=== PATIENT | female | born 1995 ===

== ENCOUNTER 2020-07-14 05:31 | Inpatient (IN) ==
[2020-07-14] MEDS ORDERED: LACTATED RINGER'S 1,000 ML IV SCH (05:45)
[2020-07-14] MEDS ORDERED: CITRIC ACID/SODIUM CITRATE 15 ML UDC PO SCH (06:00)
[2020-07-14 06:07] LABS: Basophils # (auto) 0.02 K/uL (0-0.2); Basophils % (auto) 0.2 %; Eosinophils % (auto) 0.9 %; Hematocrit (blood only) 35.9 % (37-47); Hemoglobin 12.9 g/dL (12.0-16.0); Immature Granulocytes # (auto) 0.05 K/uL (0.00-0.02); Immature Granulocytes % (auto) 0.5 %; Lymphocytes # (auto) 1.83 K/uL (1.2-3.4); Lymphocytes % (auto) 17.1 %; Mean Corpuscular Hemoglobin 32.1 pg (25-34); Mean Corpuscular Volume 89.3 fL (80-100); Monocytes # (auto) 1.09 K/uL (0.11-0.59); Monocytes % (auto) 10.2 %; Neutrophils # (auto) 7.61 K/uL (1.4-6.5); Neutrophils % (auto) 71.1 %; Platelet Count 228 K/uL (130-400); RDW Coefficient of Variation 13.3 % (11.5-14.5); RDW Standard Deviation 43.3 fL (36.4-46.3); Red Blood Count 4.02 M/uL (4.2-5.4)
[2020-07-14 06:08] LABS: Mean Corpuscular Hgb Conc 35.9 g/dL (32-36)
--- NOTE | 2020-07-14 07:12 | Anesthesiology Consultation ---
Date of Service July 14, 2020 Assessment & Plan (1) Encounter for pre-operative examination: Chart Review Chart Review: Acceptable Risk for Surgery (Pt extremely anxious - does not want spinal due to past experiences ) History Surgery Operation Date: 07/14/20 07:30 Proposed Procedures p Repeat Section in LD - Ayden Bill MD s Tubal Ligation - Ayden Bill MD Height/Weight Height: 5 ft 4 in Weight: 107.048 kg Allergies Allergy/AdvReac Type Severity Reaction Status Date / Time No Known Allergies Allergy Verified 07/13/20 09:24 Medications Home Medications Medication Instructions Recorded Confirmed Last Taken 1 tab PO QAM 07/13/20 07/13/20 Unknown calcium carbonate [Tums] 200 mg PO BID PRN 07/13/20 07/13/20 Unknown ferrous sulfate [iron] 325 mg PO QAM 07/13/20 07/13/20 Unknown NPO Date Last Intake of Fluids: 07/13/20 Time Last Intake of Fluids: 23:30 Date Last Intake of Solids: 07/13/20 Time Last Intake of Solids: 20:15 Past Medical History Medical History (Updated 07/14/20 @ 07:41 by Sammy Almendarez MD) Acid reflux Anxiety Blood dyscrasia pt unable to specify; says she's required multiple transfusions after one c section - no history of easy bruising or excessive bleeding Endometriosis Hepatitis C History of anesthesia reaction reports she was under general anesthesia for previous c-sections x 2. "spinal didn't take" [facility] 2013, 2014. PTSD (post-traumatic stress disorder) Past Family History Family History Other No family history of adverse response to anesthesia Past Surgical History Surgical History History of section x 2 History of cholecystectomy History of laparoscopy multiple for endometriosis History of wisdom tooth extraction Social History Smoking Status: Current every day smoker tobacco type: cigarettes Smoking cigarettes per day: 10 cig per day Do You Dip or Chew Tobacco: No Hx Alcohol Use: No Hx Substance Use: No substance use type: does not use Physical Exam Vital Signs Last Vital Signs Temp 37.1 C 07/14/20 05:47 Pulse 84 07/14/20 05:45 Resp 18 07/14/20 07:12 BP 127/73 07/14/20 05:45 Testing Laboratory Results 07/14/20 05:52
[2020-07-14] MEDS ORDERED: OXYTOCIN 10 UNITS/ML VIAL ONE ×2 (07:43→09:01)
[2020-07-14] MEDS ORDERED: fentaNYL citrate 100 MCG/2 ML VIAL ONE ×3 (08:38→09:34)
[2020-07-14] MEDS ORDERED: MIDAZOLAM HCL 1 MG/ML 2ML VIAL ONE (08:40)
[2020-07-14] MEDS ORDERED: METOCLOPRAMIDE HCL INJ 5 MG/ML 2 ML VIAL ONE (09:00)
[2020-07-14] MEDS ORDERED: SUCCINYLCHOLINE CHLORIDE 20 MG/ML 10 ML VIAL IV ONE (09:00)
[2020-07-14] MEDS ORDERED: ONDANSETRON INJ 2 MG/ML 2 ML VIAL ONE (09:00)
[2020-07-14] MEDS ORDERED: PROPOFOL IV EMULSION 10 MG/ML 20 ML VIAL IV ONE (09:00)
[2020-07-14] MEDS ORDERED: METHYLERGONOVINE MALEATE 0.2 MG/ML AMP ONE (09:01)
[2020-07-14] MEDS ORDERED: ROCURONIUM BROMIDE 10 MG/ML 5 ML VIAL IV ONE (09:01)
[2020-07-14] MEDS ORDERED: MoRPHine SULFATE PF 1 MG/ML 10 ML AMP/VIAL ONE (09:08)
[2020-07-14] MEDS ORDERED: GLYCOPYRROLATE 0.2 MG/ML VIAL ONE (09:19)
[2020-07-14] MEDS ORDERED: NEOSTIGMINE METHYLSULFATE 5 MG/5 ML SYR ONE (09:19)
[2020-07-14] MEDS ORDERED: miSOPROStoL 200 MCG TAB ONE (09:36)
[2020-07-14] MEDS ORDERED: KETOROLAC 30 MG/ML VIAL IV PRN (09:36)
[2020-07-14] MEDS ORDERED: ATROPINE SULFATE 0.1 MG/ML 10ML SYR IV PRN (09:36)
[2020-07-14] MEDS ORDERED: ONDANSETRON INJ 2 MG/ML 2 ML VIAL IV PRN ×2 (09:36→09:53)
--- NOTE | 2020-07-14 09:52 | Post Operative Brief Note ---
Immediate Post Op Note v1 Date of Surgery July 14, 2020 Pre & Post Diagnosis Operation Date: 07/14/20 07:30 Pre-Op Diagnosis: intrauterine at 39 weeks gestation desires repeat cesearean section delivery desires permanent sterilization Post-Op Diagnosis: low transverse cesearean section delivery for viable female infant at 0837 bilateral tubal ligation I identified the patient and participated in the time-out.: Yes Procedure Operation Date: 07/14/20 07:30 Actual Procedures p cesearean section delivery in L and D for live female infant at - Ayden Bill MD Surgeon Ayden Bill MD Rotary Machine Operator cherelle root Estimated Blood Loss 700 Findings Consistent with Post-Op Diagnosis Drains Robb Catheter
[2020-07-14] MEDS ORDERED: SENNA 8.6 MG TAB PO PRN (09:53)
[2020-07-14] MEDS ORDERED: BENZOCAINE 20% AER SPR 82.5 GM CAN EXT PRN (09:53)
[2020-07-14] MEDS ORDERED: ZOLPIDEM TARTRATE 5 MG TAB PO PRN (09:53)
[2020-07-14] MEDS ORDERED: HYDROCORTISONE ACETATE 25 MG SUPP PR PRN (09:53)
[2020-07-14] MEDS ORDERED: MAGNESIUM HYDROXIDE SUSP 30 ML UDC PO PRN (09:53)
[2020-07-14] MEDS ORDERED: diphenhydrAMINE Capsule 25 MG CAP PO PRN (09:53)
[2020-07-14] MEDS ORDERED: SUPERCREAM 0.870% 15 GM JAR EXT PRN (09:53)
[2020-07-14] MEDS ORDERED: PROMETHAZINE HCL 25 MG in SODIUM CHLORIDE 0.9% 50 ML IV PRN (09:53)
[2020-07-14] MEDS ORDERED: diphenhydrAMINE 50 MG/ML VIAL IV PRN (09:53)
[2020-07-14] MEDS: HYDROmorphone INJ 1 MG/ML SYRINGE IV PRN ×4 (09:54→10:24)
[2020-07-14] MEDS: OXYTOCIN 20 UNITS in LACTATED RINGER'S 1,000 ML IV SCH ×2 (10:15→12:21)
--- NOTE | 2020-07-14 10:54 | Operative Report (OR) ---
DATE OF OPERATION: 07/14/2020 INDICATION FOR SURGERY: This is a 25-year-old prior section, wishes to have repeat with permanent sterilization. PREOPERATIVE DIAGNOSES: 1. at term. 2. Previous section x2. 3. Desires permanent sterilization. POSTOPERATIVE DIAGNOSES: 1. at term. 2. Previous section x2. 3. Desires permanent sterilization. PROCEDURES: 1. Repeat section. 2. Bilateral tubal ligation. SURGEON: Ayden Bill MD. FENCE INSTALLER FOREMAN: Nani Thomas. FENCE INSTALLER FOREMAN ATTESTATION: Substance Abuse Therapist was necessary for retraction, manipulation of instruments. ESTIMATED BLOOD LOSS: 700 mL. IV FLUIDS: 3300. URINE OUTPUT: 175 mL clear urine at the end of the procedure. FINDINGS: Extensive adhesions of the fascia to the rectus abdominus muscle. Uterus, tubes, and ovaries otherwise appeared grossly normal. Live infant delivered. Apgars 9 and 10, weight is pending. ANESTHESIA: General. COMPLICATIONS: None. DRAINS: Robb catheter. DISPOSITION: Stable to recovery room. PATHOLOGY: Placenta. DESCRIPTION OF PROCEDURE: The patient was taken to the operating room where she was prepped and draped in normal sterile fashion. Timeout was called. The patient had requested general anesthesia. A Pfannenstiel incision was made and carried down to the fascia. Fascia was incised in the midline and extended laterally on both sides. There was extensive adhesion between the fascia and rectus abdominus muscle which was sharply dissected. Peritoneum was identified. Once the peritoneum was entered, the findings were as dictated above. An Sami retractor was placed for retraction. Vesicouterine peritoneum was sharply dissected off the lower segment of the uterus. A low transverse incision was made on the uterus and extended laterally with bandage scissors. Infant was delivered with a Victus retractor. There was no nuchal cord. cord was clamped and cut and handed over to the waiting pediatric team. Details of the infant is in the pediatric record. Cord blood was obtained. Placenta was manually removed. Uterus was exteriorized and cleared of all clots and debris. Uterus was closed in 2 layers with Vicryl stitch. There was good hemostasis post-closure of the uterus. The left and right fallopian tubes were identified and followed up to the fimbriated end, both by surgeon and assistant food service director. Modified Duarte tubal ligation was performed on both sides. Segments sent for pathological analysis. There was good hemostasis from the tubal site. Uterus was returned into the abdomen. More copious irrigation was used to irrigate the abdomen. Peritoneum was approximated using plain suture. There was good hemostasis on the rectus abdominus muscle. Fascia was closed in a running fashion using Vicryl stitch. More irrigation was used to irrigate the subcu space. Plain sutures used to approximate subQ space and skin was closed with tu. All instruments were removed from the abdomen including sponges, retractors, needles and accounted for x2. The patient is sent to recovery in stable condition. I attest to the content of the Intraoperative Record and any orders documented therein. Any exception s are noted below.
[2020-07-14] MEDS ORDERED: LORazepam 1 MG TAB PO STA ×3 (11:32→20:33)
[2020-07-14] MEDS ORDERED: MoRPHine SULFATE 10 MG/ML CARP/VIAL IV PRN ×2 (11:40→12:50)
[2020-07-14] MEDS ORDERED: MoRPHine SULFATE 10 MG/ML CARP/VIAL ONE (11:48)
[2020-07-14] MEDS ORDERED: MoRPHine SULFATE 10 MG/ML CARP/VIAL IM SCH (12:00)
--- NOTE | 2020-07-14 12:23 | Anesthesiology Progress Note ---
Date of Service July 14, 2020 Anesthesia Post Procedure Vital Signs Vital Signs: Temp Pulse Resp BP Pulse Ox 07/14/20 12:18 83 133/76 07/14/20 12:17 82 96 07/14/20 12:12 81 95 07/14/20 12:07 86 136/63 96 07/14/20 12:02 77 95 07/14/20 12:00 77 18 95 07/14/20 11:57 75 137/61 97 07/14/20 11:52 78 96 07/14/20 11:47 81 135/61 95 07/14/20 11:42 75 95 07/14/20 11:38 73 141/63 H 07/14/20 11:37 75 94 07/14/20 11:32 83 94 07/14/20 11:31 81 18 141/63 H 96 07/14/20 11:27 81 141/63 H 96 07/14/20 11:22 83 96 07/14/20 11:18 83 139/59 L 07/14/20 11:17 81 97 07/14/20 11:12 79 95 07/14/20 11:07 78 127/60 97 07/14/20 11:02 81 92 07/14/20 11:01 36.6 C 18 07/14/20 11:00 36.6 C 18 07/14/20 10:57 75 133/60 94 07/14/20 10:52 77 144/65 H 95 07/14/20 10:50 18 07/14/20 10:47 86 95 07/14/20 10:42 74 95 07/14/20 10:40 84 94 07/14/20 10:38 80 137/78 07/14/20 10:37 82 97 07/14/20 10:32 79 96 07/14/20 10:27 73 146/82 H 96 07/14/20 10:22 82 97 07/14/20 10:20 84 94 07/14/20 10:17 70 149/82 H 100 07/14/20 10:12 72 100 07/14/20 10:10 82 18 97 07/14/20 10:07 71 130/75 100 07/14/20 10:02 72 99 07/14/20 10:00 36.6 C 33 H 100 07/14/20 09:57 75 124/73 100 07/14/20 09:52 77 100 07/14/20 09:47 80 131/78 98 07/14/20 07:54 77 113/60 07/14/20 07:12 18 07/14/20 07:00 36.8 C 18 07/14/20 05:47 37.1 C 07/14/20 05:45 84 127/73 Pain Intensity Abdomen: Pain Intensity: 5 Transfer of Care Handoff Completed per policy Notes Mental Status: alert / awake / arousable Patient Amnestic to Procedure: Yes Nausea / Vomiting: adequately controlled Pain: adequately controlled Airway Patency, RR, SpO2: stable & adequate BP & HR: stable & adequate Hydration State: stable & adequate Anesthetic Complications: no major complications apparent
[2020-07-14] MEDS ORDERED: NALOXONE HCL 0.4 MG/1 ML VIAL/CARP IV PRN (13:36)
[2020-07-14] MEDS ORDERED: MoRPHine SULFATE PCA 30 MG/30 ML IV PRN (13:36)
[2020-07-14] MEDS ORDERED: MoRPHine Bolus from PCA IV STA (13:36)
[2020-07-14] MEDS: SIMETHICONE 80 MG CHEW PO SCH ×3 (13:39→21:37)
[2020-07-14] MEDS ORDERED: SODIUM CHLORIDE 0.9% 1000ML 1,000 ML IV SCH (13:45)
[2020-07-14] MEDS ORDERED: CALCIUM CARBONATE 500 MG CHEWABLE TAB PO PRN (15:57)
[2020-07-14] MEDS: LACTATED RINGER'S 1,000 ML IV SCH (20:40)
[2020-07-14] MEDS: DOCUSATE SODIUM 100 MG CAP PO SCH (21:37)
[2020-07-15] MEDS: LACTATED RINGER'S 1,000 ML IV SCH (04:45)
[2020-07-15 06:45] LABS: Basophils # (auto) 0.02 K/uL (0-0.2); Basophils % (auto) 0.2 %; Eosinophils # (auto) 0.09 K/uL (0-0.5); Eosinophils % (auto) 0.8 %; Hemoglobin 10.3 g/dL (12.0-16.0); Immature Granulocytes # (auto) 0.02 K/uL (0.00-0.02); Immature Granulocytes % (auto) 0.2 %; Lymphocytes # (auto) 1.41 K/uL (1.2-3.4); Mean Corpuscular Hemoglobin 31.3 pg (25-34); Mean Corpuscular Hgb Conc 34.3 g/dL (32-36); Mean Corpuscular Volume 91.2 fL (80-100); Mean Platelet Volume 10.9 fL (7.4-10.4); Monocytes # (auto) 1.11 K/uL (0.11-0.59); Monocytes % (auto) 10.2 %; Neutrophils # (auto) 8.18 K/uL (1.4-6.5); Neutrophils % (auto) 75.6 %; Platelet Count 216 K/uL (130-400); RDW Coefficient of Variation 13.4 % (11.5-14.5); RDW Standard Deviation 44.2 fL (36.4-46.3); Red Blood Count 3.29 M/uL (4.2-5.4); White Blood Count 10.83 K/uL (4.8-10.8)
[2020-07-15] MEDS ORDERED: ACETAMINOPHEN 1,000 MG/100 ML VIAL IV PRN (08:13)
[2020-07-15] MEDS: DOCUSATE SODIUM 100 MG CAP PO SCH ×2 (08:19→20:39)
[2020-07-15] MEDS: FERROUS SULFATE 325 MG TAB PO SCH (08:19)
[2020-07-15] MEDS: PRENATAL VITAMIN 1 TAB PO SCH (08:20)
[2020-07-15] MEDS: SIMETHICONE 80 MG CHEW PO SCH ×4 (08:20→20:39)
[2020-07-15] MEDS ORDERED: DIPHTHERIA/TETANUS/PERTUSSIS 0.5 ML SYR/VIAL IM ONE (09:00)
--- NOTE | 2020-07-15 09:53 | Obstetrical Progress Note ---
Date of Service July 15, 2020 Assessment & Plan Admission and Anticipated Discharge Date Admission Date: July 14, 2020 Subjective Patient is seen and examined. She feels well, no complaints other than being nervous/ sad. She remembers her 2nd baby's memories ( h/o SIDS at 5 months) Pain is under control with Morphine MINER PLACER. Ambulated to BR without dizziness Voided without difficulty Tolerated clear diet with out N&V Flatus neg BM neg Bleeding is minimal No fever/ chills/ CP/ SOB/ N&V/ Leg pain Bottle feeding without problems Vital Signs Temp Pulse Resp BP Pulse Ox 07/15/20 07:52 37 C 78 18 106/68 95 07/15/20 04:35 36.7 C 77 18 113/68 07/15/20 00:00 36.8 C 85 16 109/57 L Lab Results 07/14/20 07/14/20 07/15/20 Range/Units 05:52 05:52 06:15 WBC 10.70 10.83 H (4.8-10.8) K/uL RBC 4.02 L 3.29 L (4.2-5.4) M/uL Hgb 12.9 10.3 L (12.0-16.0) g/dL Hct 35.9 L 30.0 L (37-47) % MCV 89.3 91.2 (80-100) fL MCH 32.1 31.3 (25-34) pg MCHC 35.9 34.3 (32-36) g/dL RDW Std Deviation 43.3 44.2 (36.4-46.3) fL RDW Coeff of Eleazar 13.3 13.4 (11.5-14.5) % Plt Count 228 216 (130-400) K/uL MPV 11.0 H 10.9 H (7.4-10.4) fL Immature Gran % (Auto) 0.5 0.2 % Neut % (Auto) 71.1 75.6 % Lymph % (Auto) 17.1 13.0 % Barbour % (Auto) 10.2 10.2 % Eos % (Auto) 0.9 0.8 % Baso % (Auto) 0.2 0.2 % Neut # (Auto) 7.61 H 8.18 H (1.4-6.5) K/uL Lymph # (Auto) 1.83 1.41 (1.2-3.4) K/uL Barbour # (Auto) 1.09 H 1.11 H (0.11-0.59) K/uL Eos # (Auto) 0.10 0.09 (0-0.5) K/uL Baso # (Auto) 0.02 0.02 (0-0.2) K/uL Immature Gran # (Auto) 0.05 H 0.02 (0.00-0.02) K/uL Blood Type O Negative Antibody Screen NEGATIVE PE: General: Alert, orientedx3, NAD CVS: S1S2 RRR Lungs; CTAB Abd: soft, NT, ND, BS+, fundus firm, below Umbilicus Incision: HANK dressing was soaked with dark blood about 80%, increased from last night After patient was given IV Tylenol it was removed and tu were clean, dry, intact, no active bleeding/ nor oozing A new sterile dressing was applied Perineum intact, Lochia rubra minimal Ext; NT, no edema AP: 25 yo s/p C Section, pod# 1 VSS Afebrile doing well h/o anxiety, treated as needed with Ativan per her I recommended psychiatry referral here in hospital but declined Recommended to start antidepressant today but declined She wants to see her own doctor after d/c Continue routine postop care Encourage ambulation, PO intake All questions were answered Results & Data ([facility]) Vital Signs (Past 12 Hours) Vital Signs Temp Pulse Resp BP Pulse Ox 07/15/20 07:52 37 C 78 18 106/68 95 07/15/20 04:35 36.7 C 77 18 113/68 07/15/20 00:00 36.8 C 85 16 109/57 L
[2020-07-15] MEDS: IBUPROFEN 600 MG TAB PO PRN ×3 (11:36→20:39)
[2020-07-15] MEDS: oxyCODONE/ACETAMINOPHEN 5mg/325mg TAB PO PRN ×3 (11:37→20:40)
[2020-07-15] MEDS ORDERED: LORazepam 1 MG TAB PO STA (18:55)
[2020-07-15] MEDS ORDERED: bisacodyL 5 MG TABEC PO SCH (20:00)
[2020-07-16] MEDS: IBUPROFEN 600 MG TAB PO PRN ×2 (00:49→09:15)
[2020-07-16] MEDS: oxyCODONE/ACETAMINOPHEN 5mg/325mg TAB PO PRN ×2 (00:50→09:13)
[2020-07-16] MEDS ORDERED: SIMETHICONE 80 MG CHEW PO PRN (04:59)
[2020-07-16] MEDS: ONDANSETRON 4 MG OD TAB PO PRN ×2 (05:14→09:15)
[2020-07-16 06:27] LABS: Hematocrit (blood only) 28.9 % (37-47); Hemoglobin 9.9 g/dL (12.0-16.0)
[2020-07-16] MEDS: PRENATAL VITAMIN 1 TAB PO SCH (09:15)
[2020-07-16] MEDS: FERROUS SULFATE 325 MG TAB PO SCH (09:15)
[2020-07-16] MEDS: SIMETHICONE 80 MG CHEW PO SCH (09:15)
[2020-07-16] MEDS: DOCUSATE SODIUM 100 MG CAP PO SCH (09:15)
[2020-07-16] MEDS ORDERED: bisacodyL 10 MG SUPP PR PRN (09:53)
--- NOTE | 2020-07-16 10:57 | Surgery Progress Note ---
Date of Service July 16, 2020 Assessment & Plan Admission and Anticipated Discharge Date Admission Date: July 14, 2020 Subjective POD#2 doing well out of bed passing gas tolerating diet well Physical Exam Constitutional: WD/WN, vitals as above comfortable incision c/d/i abdomen soft and non-tender no edema neg Tom's for d/c f/u in 1 week for incision check Results & Data ([facility]) Vital Signs (Past 12 Hours) Vital Signs Temp Pulse Resp BP Pulse Ox 07/16/20 08:10 36.8 C 75 20 114/70 07/16/20 00:54 36.4 C L 90 18 99/64 L 97 Laboratory Results 07/14/20 07/14/20 07/15/20 05:52 05:52 06:15 WBC 10.70 10.83 H RBC 4.02 L 3.29 L Hgb 12.9 10.3 L Hct 35.9 L 30.0 L MCV 89.3 91.2 MCH 32.1 31.3 MCHC 35.9 34.3 RDW Std Deviation 43.3 44.2 RDW Coeff of Eleazar 13.3 13.4 Plt Count 228 216 MPV 11.0 H 10.9 H Immature Gran % (Auto) 0.5 0.2 Neut % (Auto) 71.1 75.6 Lymph % (Auto) 17.1 13.0 Stone % (Auto) 10.2 10.2 Eos % (Auto) 0.9 0.8 Baso % (Auto) 0.2 0.2 Neut # (Auto) 7.61 H 8.18 H Lymph # (Auto) 1.83 1.41 Stone # (Auto) 1.09 H 1.11 H Eos # (Auto) 0.10 0.09 Baso # (Auto) 0.02 0.02 Immature Gran # (Auto) 0.05 H 0.02 Blood Type O Negative Antibody Screen NEGATIVE Screen 07/15/20 07/16/20 08:54 05:58 WBC RBC Hgb 9.9 L Hct 28.9 L MCV MCH MCHC RDW Std Deviation RDW Coeff of Eleazar Plt Count MPV Immature Gran % (Auto) Neut % (Auto) Lymph % (Auto) Stone % (Auto) Eos % (Auto) Baso % (Auto) Neut # (Auto) Lymph # (Auto) Stone # (Auto) Eos # (Auto) Baso # (Auto) Immature Gran # (Auto) Blood Type O Negative Antibody Screen Cancelled Screen Negative
== END 2020-07-16 12:05 | disposition home or self-care (01) | DRG 785 ==
LOC: 4S1 05:31 → EDSTATUS 07:30 → MERGE 07:30 → 4S2 12:39
PROC: M.PPTLD (2020-07-14 07:30)